=== PATIENT | female | born 1955 | race Caucasian/White ===

== ENCOUNTER 2019-04-20 08:56 | Day surgery (SDC) | payer OTHER ==
[~2019-04-20 08:56] MED LIST: AVAPRO150 MG PO; DAYPRO600 MG PO; LIPITOR20 MG PO; MONTELUKAST SOD10 MG PO; NORVASC5 MG PO; PREVACID30 MG PO; TOPROL XL100 M1 PO; TRILIPIX135 MG PO; ULTRAM50 MG PO; ZANAFLEX4 M1 PO
== END 2019-04-20 17:10 | disposition home or self-care (01) ==
LOC: CIR.AMB 08:56
DX: M75.41 Impingement syndrome of right shoulder (principal); M19.011 Primary osteoarthritis, right shoulder